=== PATIENT | female | born 1985 | race Caucasian/White ===

== ENCOUNTER 2017-06-16 22:53 | Emergency (ER) | payer OTHER, MEDICAID ==
[2017-06-17] MEDS: IBUPROFEN 600 MG TAB PO (00:44)
[2017-06-17] MEDS: TRIMETHOPRIM/SULFAMETHOX (DS) TAB PO (00:44)
== END 2017-06-17 01:12 | disposition home or self-care (01) ==
LOC: FTE 22:53
DX: L03.115 Cellulitis of right lower limb (principal)
CPT/HCPCS: 99284; Z7610